=== PATIENT | male | born 2000 | race Caucasian/White ===

== ENCOUNTER 2025-04-29 19:05 | Emergency (ER) | payer OTHER ==
[~2025-04-29] VITALS: Ht 177.8 cm; Wt 70.3 kg
[2025-04-29] MEDS ORDERED: Tdap Vaccine 0.5 ML SYR (Adult Vaccine) IM ONE (19:40)
[2025-04-29] MEDS ORDERED: Lidocaine Hydrochloride 2% 10 ML AMP SC ONE (19:40)
[2025-04-29] MEDS ORDERED: ceFAZolin sodium/sodium chlor 10 ML IV ONE (19:55)
[2025-04-29] MEDS ORDERED: Acetaminophen/Oxycodone 5 MG/325 MG TABLET PO ONE ×2 (20:15→20:55)
[2025-04-29] MEDS ORDERED: OXYCODONE-ACET1 EAC3 PO (20:55)
[2025-04-29] MEDS ORDERED: AMOX-CLAV 875-1 EACH PO (20:55)
[2025-04-29] MEDS ORDERED: Bacitracin Zinc/Neomycin/Pol 15 GM TUBE T ONE (20:55)
== END 2025-04-29 21:29 | disposition home or self-care (01) ==
LOC: ED 19:05
DX: S62.522B Displaced fracture of distal phalanx of left thumb, initial encounter for open fracture (principal); W31.89XA Contact with other specified machinery, initial encounter; Y93.89 Activity, other specified; Y92.89 Other specified places as the place of occurrence of the external cause; Y99.8 Other external cause status

== ENCOUNTER 2025-05-12 19:43 | Emergency (ER) | payer OTHER ==
[~2025-05-12] VITALS: Ht 177.8 cm; Wt 70.3 kg
[~2025-05-12 19:43] MED LIST: AMOX-CLAV 875-1 EACH PO; OXYCODONE-ACET1 EAC3 PO
== END 2025-05-12 21:02 | disposition home or self-care (01) ==
LOC: ED 19:43
DX: S61.012D Laceration without foreign body of left thumb without damage to nail, subsequent encounter (principal); Z48.02 Encounter for removal of sutures; X58.XXXD Exposure to other specified factors, subsequent encounter